=== PATIENT | male | born 2000 | race Caucasian/White ===

== ENCOUNTER 2022-03-31 19:49 | Emergency (ER) | payer MEDICARE ==
[~2022-03-31] VITALS: Ht 157.5 cm; Wt 73.0 kg
[2022-03-31 20:37] VITALS: BP 131/79
[2022-03-31] MEDS ORDERED: LIDOCAINE HCL/PF 1% 10 MG/ML 5ML VIAL INFIL ONE (21:00)
== END 2022-03-31 21:40 | disposition home or self-care (01) ==
LOC: ER 19:49
DX: S60.041A Contusion of right ring finger without damage to nail, initial encounter (principal); W23.0XXA Caught, crushed, jammed, or pinched between moving objects, initial encounter; Y93.89 Activity, other specified; Y92.89 Other specified places as the place of occurrence of the external cause
CPT/HCPCS: 73120; 99283; J3490